=== PATIENT | male | born 1980 | race American Indian/Alaskan Native ===

== ENCOUNTER 2017-02-09 13:45 | Emergency (ER) | payer SELFPAY ==
[2017-02-09 14:55] VITALS: BP 143/96
[2017-02-09] MEDS ORDERED: FLAGYL PO ONE (17:28)
[2017-02-09] MEDS ORDERED: ZITHROMAX PO ONE (17:28)
[2017-02-09] MEDS ORDERED: AFRIN NS ONE (17:34)
--- NOTE | 2017-02-09 18:04 | Emergency Department Report ---
Entered by ANDREW NEWMAN, acting as scribe for ZHANG RENDON PA. ED General Adult HPI - General Chief complaint: Earache Stated complaint: HEAD/NECK RASH Time Seen by Provider: 02/09/17 17:20 Source: patient Mode of arrival: Ambulatory Limitations: No Limitations - History of Present Illness Initial comments: 36 y/o male with no significant PMHx, presents to the ED with multiple complaints. Primary c/o left ear pain and decreased hearing beginning 2 days ago. The patient states he had been experiencing some pressure-like symptoms and intermittent problems with hearing, but the hearing of the left ear decreased after cleaning out the ear with Q-tips and hydrogen peroxide. Associated symptom of sinus pressure, but he denies fever, nausea, vomiting, SOB , abdominal pain, and chest pain. Secondary c/o rash underneath the scrotum, bilateral axillary areas, and right anterior chest beginning 3 weeks ago. Patient denies difficulty breathing. Tertiary c/o jaw pain of unknown onset, patient notes he had some wisdom teeth erupting. Quaternary c/o "mucusy" urine of unknown onset, patient states that he had intercourse that was protected, but the condom broke. He denies penile discharge. MD Complaint: Rash/ear problems/male -: days(s) (ear problems began two days ago), week(s) Location: left (left ear) Radiation: non-radiation Quality: other (pressure) Consistency: constant Improves with: none Worsens with: none Associated Symptoms: other (sinus pressure, jaw pain). denies: chest pain, cough, fever/chills Treatments Prior to Arrival: other (hydrogen peroxide to the area, cleaned with Q-tips) - Related Data Previous Rx's Medication Instructions Recorded Last Taken Type Doxycycline Hyclate [Doxycycline 100 mg PO Q12HR #20 tab 02/09/17 Unknown Rx Hyclate TAB] Ibuprofen [Motrin 800 MG tab] 800 mg PO Q8HR PRN #30 tablet 02/09/17 Unknown Rx Nystatin [Nystop Powder] 1 applicatio TP TID #1 bottle 02/09/17 Unknown Rx Allergies Allergy/AdvReac Type Severity Reaction Status Date / Time Penicillins Allergy Unknown Verified 02/09/17 14:47 ED Review of Systems Comment: All other systems reviewed and negative Constitutional: denies: chills, fever ENT: hearing loss (left ear), other (left ear pain, jaw pain, sinus pressure) Respiratory: denies: cough, shortness of breath Cardiovascular: denies: chest pain Gastrointestinal: denies: abdominal pain, nausea, vomiting, diarrhea Genitourinary: other ("mucusy" urine). denies: discharge Skin: rash (to the right anterior chest, bilateral axillary area, and underneath the scrotum) Neurological: denies: weakness, numbness ED Past Medical Hx - Past Medical History Previous Medical History?: No - Surgical History Hx Cholecystectomy: Yes - Social History Smoking Status: Current Every Day Smoker Substance Use Type: Alcohol, Marijuana, Prescribed - Medications Home Medications: Home Medications Medication Instructions Recorded Confirmed Last Taken Type Doxycycline Hyclate [Doxycycline 100 mg PO Q12HR #20 tab 02/09/17 Unknown Rx Hyclate TAB] Ibuprofen [Motrin 800 MG tab] 800 mg PO Q8HR PRN #30 tablet 02/09/17 Unknown Rx Nystatin [Nystop Powder] 1 applicatio TP TID #1 bottle 02/09/17 Unknown Rx ED Physical Exam - General Limitations: No Limitations - Expanded ENT Exam Expanded Teeth exam: Present: fractured tooth # (1) - exam: Absent: normal inspection, testicular tenderness, urethral discharge, scrotal swelling External exam: Present: normal external exam - Other Other exam information: GENERAL: Patient is alert and oriented x 3. No apparent distress, normal gait, atraumatic. HEAD: Head is normocephalic and atraumatic. EYES: Extraocular movements are intact. Pupils are equal, round, and reactive to light and accommodation. EARS: Symmetrical, atraumatic, right internal ear and TM is normal, left ear canal is mildly erythematous and edematous, suggesting of otitis media. Retraction of the left TM is noted with cerumen coating over the left TM. NOSE: Nose symmetrical, nontender. Nares appeared normal. MOUTH:Mouth is well hydrated and without lesions. Mucous membranes are moist. Uvula midline. Tongue not elevated. Posterior pharynx clear, no exudate or lesions. Tonsils are not erythematous or swollen. Patent airway. NECK: Supple. Non edematous, no carotid bruits. No lymphadenopathy or thyromegaly. LUNGS: Symmetrical with respiration. No wheezing, rales or crackles, CTAB. HEART: Regular rate and rhythm with normal S1/S2 present. No murmurs, rubs, or gallops. ABDOMEN: Soft, nondistended. Nontender to palpation on all quadrants. No organomegaly was noted. Positive bowel sounds. No CVA tenderness. EXTREMITIES/MUSCULOSKELETAL: No cyanosis, clubbing, rash, lesions or edema. Full ROM bilaterally. UE/LE Pulses 2+ bilaterally. LE and UE 5+ strength bilaterally SKIN: Warm and dry. Rash noted to the area underneath the scrotum that is consistent with jock itch. To the right anterior chest, a papular rash is noted , appears likely the heads have been taken off from scratching the affected area , does not appear erythematous with no drainage from the area. Bilateral axillary areas have a rash that is consistent with tinea. NEUROLOGIC: No focal deficit., ED Course Vital Signs 02/09/17 14:48 Temperature 98.3 F Pulse Rate 71 Respiratory 17 Rate Blood Pressure 143/96 O2 Sat by Pulse 100 Oximetry ED Medical Decision Making - Medical Decision Making Patient was evaluated by the provider in fast track. 36 y/o male presents with multiple complaints, including rash to the bilateral underarms, beneath the scrotum, and to the right anterior chest beginning 3 weeks ago, dental pain of unknown onset, "mucusy" urine of unknown onset, and left ear pain and decreased hearing beginning 2 days ago. The patient's labs show Patient sent home with Doxycycline abx. Discussed with the patient to follow up with a PCP as referred, and to return to the ED if his symptoms return or worsen. Patient states understanding and will follow instructions. Patient is in no acute distress with stable vital signs. ED Disposition Clinical Impression: Possible exposure to STD, Toothache, Tinea cruris Disposition: DISCHARGED TO HOME OR SELFCARE Is pt being admited?: No Does the pt Need Aspirin: No Condition: Stable Prescriptions: Doxycycline Hyclate [Doxycycline Hyclate TAB] 100 mg PO Q12HR #20 tab Ibuprofen [Motrin 800 MG tab] 800 mg PO Q8HR PRN #30 tablet PRN Reason: Pain Nystatin [Nystop Powder] 1 applicatio TP TID #1 bottle Referrals: PRIMARY CARE, [Primary Care Provider] - 3-5 Days This documentation as recorded by the TRENT ortega GRACE,accurately reflects the service I personally performed and the decisions made by me,ZHANG RENDON PA.
[2017-02-09 18:12] LABS: Bilirubin,Urine NEG (Negative); Blood,Urine NEG (Negative); Ketones,Urine NEG (Negative); Leukocyte Esterase,Urine NEG (Negative); Mucus,Urine FEW /HPF; Nitrite,Urine NEG (Negative); Protein,Urine <15 mg/dL mg/dL (Negative); Urobilinogen,Urine < 2.0 mg/dL (<2.0)
== END 2017-02-09 18:18 | disposition home or self-care (01) ==
LOC: ED 13:45
DX: B35.6 Tinea cruris (principal); K08.89 Other specified disorders of teeth and supporting structures; F17.200 Nicotine dependence, unspecified, uncomplicated; F12.90 Cannabis use, unspecified, uncomplicated; Z88.0 Allergy status to penicillin
CPT/HCPCS: 81001; 87591; 99283